=== PATIENT | male | born 1995 | race Caucasian/White ===

== ENCOUNTER 2018-05-11 02:46 | Emergency (ER) | payer SELFPAY ==
[~2018-05-11] VITALS: Ht 190.5 cm; Wt 75.0 kg
[2018-05-11] MEDS ORDERED: NALOXONE 0.4 MG/ML, 1ML IVPush PRN (03:00)
[2018-05-11 04:28] VITALS: BP 126/70
== END 2018-05-11 05:44 | disposition home or self-care (01) ==
LOC: ED 05:42
DX: T40.1X1A Poisoning by heroin, accidental (unintentional), initial encounter (principal); Y92.89 Other specified places as the place of occurrence of the external cause; F11.129 Opioid abuse with intoxication, unspecified; F15.10 Other stimulant abuse, uncomplicated; F17.200 Nicotine dependence, unspecified, uncomplicated
CPT/HCPCS: 99283